=== PATIENT | male | born 1970 | race Hispanic/Latino ===

== ENCOUNTER 2021-07-13 08:50 | Inpatient (IN) | payer OTHER ==
[~2021-07-13] VITALS: Ht 180.3 cm; Wt 131.5 kg
[2021-07-13] MEDS ORDERED: SODIUM CHLORIDE 0.9% 1000ML 1,000 ML IV STA (08:53)
[2021-07-13] MEDS ORDERED: Vancomycin IV 1 GM in SODIUM CHLORIDE 0.9% 250ML 250 ML IV ONE (09:00)
[2021-07-13] MEDS ORDERED: ONDANSETRON HCL INJ 2MG/ML 2ML 2 MG/ML VIAL IV STA (09:03)
[2021-07-13] MEDS ORDERED: Morphine 4mg Syringe 4 MG/ML INJ IV STA (09:03)
[2021-07-13 09:16] LABS: BASOPHILS % 0.2 % (0.0-1.0); EOSINOPHILS # (AUTO) 0.1 (0.0-0.4); HEMATOCRIT 39.8 % (38.2-49.6); LYMPHOCYTES # (AUTO) 1.7 (1.0-3.2); LYMPHOCYTES % 20.8 % (18.0-39.1); MEAN CORPUSCULAR HEMOGLOBIN 28.9 pg (28-32); MEAN CORPUSCULAR HGB CONC 32.7 g/dL (31-35); MEAN CORPUSCULAR VOLUME 88.4 fL (81-99); MONOCYTES # (AUTO) 0.7 (0.2-0.8); MONOCYTES % 8.6 % (4.4-11.3); NEUTROPHILS # (AUTO) 5.7 (2.1-6.9); PLATELET COUNT 399 x10e3/uL (140-360); RED CELL DISTRIBUTION WIDTH 12.7 % (11.7-14.4)
[2021-07-13] MEDS ORDERED: SODIUM CHLORIDE 0.9% 250ML 250 ML ONE (09:22)
[2021-07-13 09:28] LABS: INR 0.94; PROTHROMBIN TIME 13.4 seconds (11.9-14.5)
[2021-07-13 09:29] LABS: PARTIAL THROMBOPLASTIN TIME 31.1 seconds (23.8-35.5)
[2021-07-13] MEDS ORDERED: ONDANSETRON HCL INJ 2MG/ML 2ML 2 MG/ML VIAL IV PRN (09:45)
[2021-07-13 09:49] LABS: ALBUMIN 3.5 g/dL (3.5-5.0); ALBUMIN/GLOBULIN RATIO 0.7 (0.8-2.0); ANION GAP 11.8 mmol/L (8-16); CALCIUM 8.6 mg/dL (8.4-10.2); CREATININE, SERUM 0.76 mg/dL (0.72-1.25); MAGNESIUM 1.8 MG/DL (1.3-2.1)
[2021-07-13 09:58] LABS: POTASSIUM 2.8 mmol/L (3.5-5.1)
[2021-07-13 10:25] LABS: CLARITY,URINE CLEAR (CLEAR); COLOR,URINE YELLOW (YELLOW)
[2021-07-13 10:26] LABS: KETONES,URINE 1+ (NEGATIVE); LEUKOCYTE ESTERASE ,URINE NEGATIVE (NEGATIVE); NITRITE,URINE NEGATIVE (NEGATIVE); PROTEIN,URINE DIPSTICK TRACE (NEGATIVE); URINE UROBILINOGEN 0.2 mg/dL (0.2 - 1)
[2021-07-13] MEDS ORDERED: POTASSIUM CHLORIDE 10MEQ/100ML 100 ML IV SCH (10:30)
[2021-07-13] MEDS: SODIUM CHLORIDE 0.9% 1000ML 1,000 ML IV SCH ×2 (10:34→22:30)
[2021-07-13] MEDS ORDERED: IOPAMIDOL 370 MG/ML 100 ML INFUS..BTL INJ ONE (10:41)
[2021-07-13 10:47] LABS: BACTERIA,URINE FEW /HPF; EPITHELIAL CELLS,URINE FEW /LPF; RBC,URINE 0-5 /HPF (0-5); WBC,URINE (MAN) 0-5 /HPF (0-5)
[2021-07-13] MEDS: POTASSIUM CHLORIDE 20MEQ/100ML 100 ML IV SCH ×2 (11:02→13:35)
[2021-07-13] MEDS: INSULIN LISPRO 100 UNIT/1 ML 3ML VIAL SQ SCH ×3 (11:30→21:00)
[2021-07-13] MEDS ORDERED: DEXTROSE 50% SYRINGE 50 ML IV PRN (11:30)
[2021-07-13 12:02] VITALS: BP_SYST 154; BP_SYST 170; BP_DIAS 103; BP_DIAS 99
[2021-07-13] MEDS: Morphine 4mg Syringe 4 MG/ML INJ IV PRN ×3 (12:42→20:34)
[2021-07-13 12:53] VITALS: BP 154/99
[2021-07-13] MEDS ORDERED: GLIPIZIDE5 MG PO (12:53)
[2021-07-13] MEDS ORDERED: METFORMIN HCL500 MG PO (12:53)
[2021-07-13] MEDS ORDERED: LOSARTAN POTASS25 MG PO (12:53)
[2021-07-13] MEDS ORDERED: LIDOCAINE HCL 1% LOCAL INJ 20 ML VIAL ONE (13:34)
[2021-07-13 15:38] VITALS: BP 143/90
[2021-07-13] MEDS ORDERED: Vancomycin IV 1 GM in SODIUM CHLORIDE 0.9% 250ML 250 ML IV SCH (16:30)
[2021-07-13] MEDS: Vancomycin IV 1 GM in SODIUM CHLORIDE 0.9% 250ML 250 ML IV SCH (20:20)
[2021-07-13 21:14] VITALS: BP 140/88
[2021-07-14] VITALS (9 sets, daily range): BP systolic 133–158; BP diastolic 83–95
[2021-07-14] MEDS: Morphine 4mg Syringe 4 MG/ML INJ IV PRN ×4 (02:41→16:26)
[2021-07-14] MEDS: SODIUM CHLORIDE 0.9% 1000ML 1,000 ML IV SCH (05:00)
[2021-07-14 05:08] LABS: BASOPHILS % 0.3 % (0.0-1.0); EOSINOPHILS # (AUTO) 0.1 (0.0-0.4); EOSINOPHILS % 1.5 % (0.0-6.0); HEMATOCRIT 34.5 % (38.2-49.6); HEMOGLOBIN 11.3 g/dL (14.0-18.0); LYMPHOCYTES # (AUTO) 1.3 (1.0-3.2); LYMPHOCYTES % 18.7 % (18.0-39.1); MEAN CORPUSCULAR HGB CONC 32.8 g/dL (31-35); MEAN CORPUSCULAR VOLUME 88.5 fL (81-99); MONOCYTES # (AUTO) 0.7 (0.2-0.8); NEUTROPHILS # (AUTO) 4.8 (2.1-6.9); NEUTROPHILS % 69.4 % (38.7-80.0); PLATELET COUNT 334 x10e3/uL (140-360)
[2021-07-14 06:02] LABS: ALBUMIN 2.8 g/dL (3.5-5.0); ALBUMIN/GLOBULIN RATIO 0.6 (0.8-2.0); ANION GAP 11.9 mmol/L (8-16); CALCIUM 7.8 mg/dL (8.4-10.2); CREATININE, SERUM 0.71 mg/dL (0.72-1.25)
[2021-07-14 06:09] LABS: POTASSIUM 2.9 mmol/L (3.5-5.1)
[2021-07-14] MEDS: INSULIN LISPRO 100 UNIT/1 ML 3ML VIAL SQ SCH ×4 (07:30→21:33)
[2021-07-14] MEDS: GLIPIZIDE 5 MG TAB PO SCH ×2 (07:30→07:49)
[2021-07-14] MEDS: Vancomycin IV 1 GM in SODIUM CHLORIDE 0.9% 250ML 250 ML IV SCH ×2 (08:16→20:58)
[2021-07-14] MEDS: LOSARTAN POTASSIUM 25 MG TAB PO SCH (08:16)
[2021-07-14] MEDS: DEXTROSE 5%/0.45% SOD CHL 1,000 ML IV SCH ×2 (09:03→17:22)
[2021-07-14] MEDS ORDERED: POTASSIUM CHLORIDE 20MEQ/100ML 100 ML IV ONE ×2 (09:30→11:30)
[2021-07-14] MEDS ORDERED: MIDAZOLAM HCL 2 MG/2 ML VIAL ONE (13:01)
[2021-07-14] MEDS ORDERED: FENTANYL CITRATE/PF 100MCG/2 ML INJ ONE (13:01)
[2021-07-14] MEDS ORDERED: SUGAMMADEX SODIUM 200 MG/2 ML VIAL IV ONE (13:48)
[2021-07-14] MEDS ORDERED: POVIDONE IODINE 0.05% 0.05 % ML PO ONE (13:52)
[2021-07-14] MEDS ORDERED: DEXAMETHASONE SOD PHOS INJ 4 MG/ML SDV ONE (13:52)
[2021-07-14] MEDS ORDERED: PROPOFOL IV EMULSION 10 MG/ML 20 ML VIAL ONE (13:52)
[2021-07-14] MEDS ORDERED: ONDANSETRON HCL INJ 2MG/ML 2ML 2 MG/ML VIAL ONE (13:52)
[2021-07-14] MEDS ORDERED: LIDOCAINE HCL 2% LOCAL INJ 5 ML SDV VIAL INJ ONE (13:52)
[2021-07-14] MEDS ORDERED: SEVOFLURANE INHAL SOLN 250 ML PEN BTL ONE (13:52)
[2021-07-14] MEDS ORDERED: ROCURONIUM BROMIDE 10 MG/ML 5ML VIAL IV ONE (13:52)
[2021-07-14] MEDS ORDERED: HYDROMORPHONE 1MG/1ML INJ ONE (14:23)
[2021-07-15] VITALS (7 sets, daily range): BP systolic 108–145; BP diastolic 64–90
[2021-07-15] MEDS: HYDROCODONE/APAP 7.5MG-325MG 1 EA TAB PO PRN ×4 (04:43→23:19)
[2021-07-15 05:29] LABS: BASOPHILS % 0.3 % (0.0-1.0); HEMATOCRIT 36.2 % (38.2-49.6); HEMOGLOBIN 11.8 g/dL (14.0-18.0); LYMPHOCYTES # (AUTO) 0.9 (1.0-3.2); LYMPHOCYTES % 12.8 % (18.0-39.1); MEAN CORPUSCULAR HEMOGLOBIN 28.9 pg (28-32); MEAN CORPUSCULAR HGB CONC 32.6 g/dL (31-35); MEAN CORPUSCULAR VOLUME 88.7 fL (81-99); MONOCYTES # (AUTO) 0.6 (0.2-0.8); MONOCYTES % 7.7 % (4.4-11.3); NEUTROPHILS # (AUTO) 5.8 (2.1-6.9); NEUTROPHILS % 78.7 % (38.7-80.0); PLATELET COUNT 378 x10e3/uL (140-360); RED BLOOD COUNT 4.08 x10e6/uL (4.3-5.7); RED CELL DISTRIBUTION WIDTH 12.5 % (11.7-14.4)
[2021-07-15 06:04] LABS: ANION GAP 10.6 mmol/L (8-16); CALCIUM 8.3 mg/dL (8.4-10.2); CREATININE, SERUM 0.75 mg/dL (0.72-1.25); POTASSIUM 3.6 mmol/L (3.5-5.1)
[2021-07-15] MEDS: GLIPIZIDE 5 MG TAB PO SCH (08:30)
[2021-07-15] MEDS: INSULIN LISPRO 100 UNIT/1 ML 3ML VIAL SQ SCH ×4 (08:30→21:33)
[2021-07-15] MEDS: LOSARTAN POTASSIUM 25 MG TAB PO SCH (10:00)
[2021-07-15] MEDS: Vancomycin IV 1 GM in SODIUM CHLORIDE 0.9% 250ML 250 ML IV SCH (11:05)
[2021-07-15] MEDS: METFORMIN HCL 500 MG TAB PO SCH (18:00)
[2021-07-15] MEDS: Vancomycin IV 1.25 GM in SODIUM CHLORIDE 0.9% 250ML 250 ML IV SCH (21:25)
[2021-07-16] VITALS: BP 142/85
[2021-07-16 04:00] VITALS: BP 139/88
[2021-07-16] MEDS: HYDROCODONE/APAP 7.5MG-325MG 1 EA TAB PO PRN ×2 (04:10→12:42)
[2021-07-16 06:06] LABS: BASOPHILS % 0.7 % (0.0-1.0); EOSINOPHILS # (AUTO) 0.2 (0.0-0.4); EOSINOPHILS % 3.3 % (0.0-6.0); HEMATOCRIT 34.9 % (38.2-49.6); HEMOGLOBIN 11.4 g/dL (14.0-18.0); LYMPHOCYTES # (AUTO) 2.2 (1.0-3.2); LYMPHOCYTES % 35.6 % (18.0-39.1); MEAN CORPUSCULAR HEMOGLOBIN 29.3 pg (28-32); MEAN CORPUSCULAR HGB CONC 32.7 g/dL (31-35); MEAN CORPUSCULAR VOLUME 89.7 fL (81-99); MONOCYTES # (AUTO) 0.6 (0.2-0.8); NEUTROPHILS # (AUTO) 3.1 (2.1-6.9); NEUTROPHILS % 50.9 % (38.7-80.0); PLATELET COUNT 329 x10e3/uL (140-360); RED BLOOD COUNT 3.89 x10e6/uL (4.3-5.7); RED CELL DISTRIBUTION WIDTH 12.9 % (11.7-14.4)
[2021-07-16 06:35] LABS: ANION GAP 12.1 mmol/L (8-16); CALCIUM 7.6 mg/dL (8.4-10.2); CREATININE, SERUM 0.67 mg/dL (0.72-1.25); MAGNESIUM 1.9 MG/DL (1.3-2.1); PHOSPHORUS 2.5 MG/DL (2.3-4.7); POTASSIUM 3.1 mmol/L (3.5-5.1)
[2021-07-16] MEDS ORDERED: POTASSIUM CHLORIDE 20 MEQ TAB CR PO ONE (07:30)
[2021-07-16] MEDS: INSULIN LISPRO 100 UNIT/1 ML 3ML VIAL SQ SCH ×2 (07:59→12:08)
[2021-07-16] MEDS: Vancomycin IV 1.25 GM in SODIUM CHLORIDE 0.9% 250ML 250 ML IV SCH (08:44)
[2021-07-16] MEDS: GLIPIZIDE 5 MG TAB PO SCH (08:44)
[2021-07-16] MEDS: METFORMIN HCL 500 MG TAB PO SCH (08:44)
[2021-07-16] MEDS: LOSARTAN POTASSIUM 25 MG TAB PO SCH (08:45)
[2021-07-16] MEDS: Morphine 4mg Syringe 4 MG/ML INJ IV PRN (08:46)
[2021-07-16 09:18] VITALS: BP 139/83
[2021-07-16 09:22] VITALS: BP 139/83
[2021-07-16] MEDS ORDERED: POLYETHYLENE GLYCOL 3350 17 GM PACK PO PRN (09:45)
[2021-07-16] MEDS ORDERED: HYDRALAZINE HCL 20 MG/ML VIAL IV PRN (10:00)
[2021-07-16] MEDS ORDERED: MUPIROCIN 2% OINT 22 GM TUBE TOP PRN (11:45)
[2021-07-16 13:22] VITALS: BP 120/75
[2021-07-16] MEDS ORDERED: MIRALAX17 GM PO (13:45)
[2021-07-16] MEDS ORDERED: HYDROCODON-ACE1 EA12 PO (13:45)
[2021-07-16] MEDS ORDERED: COLACE100 MG PO (13:45)
[2021-07-16] MEDS ORDERED: AUGMENTIN 500-1 EACH PO (13:45)
[2021-07-16] MEDS ORDERED: CIPRO500 MG PO (13:45)
[2021-07-16] MEDS ORDERED: DOCUSATE SODIUM 100 MG CAP PO SCH (15:00)
== END 2021-07-16 15:25 | disposition home or self-care (01) | DRG 603 ==
LOC: ER 09:10 → ERHOLD 09:45 → MED/SURG 11:51 → MED/SURG2 07-14 14:53
PROVIDERS: ADMIT Internal Medicine; ATTEND Internal Medicine
PROC: 0J953ZX Drainage of Left Neck Subcutaneous Tissue and Fascia, Percutaneous Approach, Diagnostic (ICD-10-PCS; principal; 2021-07-13)
PROC: 0J910ZZ Drainage of Face Subcutaneous Tissue and Fascia, Open Approach (ICD-10-PCS; 2021-07-14)
PROC: 0J950ZZ Drainage of Left Neck Subcutaneous Tissue and Fascia, Open Approach (ICD-10-PCS; 2021-07-14)
DX: L02.11 Cutaneous abscess of neck (principal); Z68.41 Body mass index [BMI] 40.0-44.9, adult; L04.0 Acute lymphadenitis of face, head and neck; I10 Essential (primary) hypertension; E66.01 Morbid (severe) obesity due to excess calories; Z82.49 Family history of ischemic heart disease and other diseases of the circulatory system; Z83.3 Family history of diabetes mellitus; E11.65 Type 2 diabetes mellitus with hyperglycemia; E87.6 Hypokalemia; Z20.822 Contact with and (suspected) exposure to COVID-19; K59.00 Constipation, unspecified; Z79.84 Long term (current) use of oral hypoglycemic drugs
CPT/HCPCS: 10005; 10160; 36415; 70491; 74470; 80048; 80053; 80202; 81001; 82948; 83605; 83735; 84100; 85025; 85610; 85730; 87040; 87070; 87205; 88172; 88173; 88305; 93005; 94799; 96361; 99284; J1100; J1170; J2001; J2250; J2270; J2405; J2543; J3010; J3370; J3480; J7030; J7050; Q9967; U0002